=== PATIENT | male | born 1945 | race Caucasian/White ===

== ENCOUNTER → 2021-06-17 | Outpatient (CLI) | payer OTHER ==
[2021-01-31 11:18] VITALS: BP 144/69
[~2021-06-17] MED LIST: APRE30TA2 PO; BUDE10.22 IH; CHOL20009 PO; DILT420T7 PO; FLUO15CR2 TP; LISI5TAB15 PO; LOSA-73 PO; MELO7.5T29 PO; PRAV20TA2 PO; RIVA20TA2 PO; TAMS0.4C97 PO; VENTOLIN HFA18 GM INH
== END ==
LOC: LAB 12:11
PROVIDERS: ATTEND Orthopaedic Surgery Sports Medicine
DX: Z01.812 Encounter for preprocedural laboratory examination (principal); Z20.822 Contact with and (suspected) exposure to COVID-19; G56.01 Carpal tunnel syndrome, right upper limb
CPT/HCPCS: U0003; U0005

== ENCOUNTER 2021-06-22 08:00 | Day surgery (SDC) | payer OTHER ==
[~2021-06-22] VITALS: Ht 182.9 cm; Wt 102.0 kg
[~2021-06-22 08:00] MED LIST changes: +HYDROmorphone 2 MG/ML INJ. IVP PRN; +IV RINGERS,LACTATED 1000ML 1,000 ML IV SCH; +MORPHINE SULFATE 2 MG/ML INJ. IVP PRN; +PROCHLORPERAZINE 10 MG/2 ML VIAL. IVP PRN; +fentaNYL PF VIAL 100 MCG/2 ML VIAL IVP PRN
[2021-06-22] MEDS ORDERED: BUPIVACAINE MPF 0.5% 30 ML VIAL. ONE (08:46)
[2021-06-22] MEDS ORDERED: LIDOCAINE 1% Multi-Dose 20 ML VIAL. ONE (08:46)
[2021-06-22] MEDS ORDERED: LIDOCAINE 2% PF 5 ML VIAL. ONE (08:55)
[2021-06-22] MEDS ORDERED: DEXAMETHASONE SOD PHOS 4 MG/ML VIAL ONE (08:55)
[2021-06-22] MEDS ORDERED: PROPOFOL 10 MG/ML (20ML) VIAL. IV ONE (08:55)
[2021-06-22] MEDS ORDERED: ONDANSETRON PF 4 MG/2 ML VIAL. ONE (08:55)
[2021-06-22] MEDS ORDERED: MIDAZOLAM HCL/PF 2 MG/2 ML VIAL. ONE (08:57)
[2021-06-22] MEDS ORDERED: fentaNYL PF VIAL 100 MCG/2 ML VIAL ONE (08:57)
--- NOTE | 2021-06-22 10:01 | DISCH ---
DISCHARGE INSTRUCTIONS Condition on Discharge Condition on Discharge: Stable Activity After Discharge Activity Instructions for Disc: Resume previous activity, Activity as tolerated Bathing Instructions: Shower-keep dressing dry Lifting Instructions after Dis: No heavy lifting, No pulling or pushing Exercise Instruction after Dis: Progress as tolerated Weight Bearing Status after Di: As tolerated Diet after Discharge Diet after Discharge: Cardiac, Regular Diet Texture: Regular Swallowing Supervision: None needed Wound Incision Care Wound/Incision Care: Ice to area for comfort, Keep wound/cast CDI, Keep wound e levated Other wound/incision instructi: change dressing in 2-3 days, keep incision covered Contacting the DRBasim after DC Call your doctor for: Concerns you may have Follow-Up Follow up with: Jennifer in 2 wks Treatment/Equipment after DC Adaptive Equipment Issued: None MONA ROBERTSON II, MD Jun 22, 2021 10:01
--- NOTE | 2021-06-22 10:05 | PDOC4 ---
Operative Note Operative Note Date of Procedure: 06/22/21 Surgeon: Toi Robertson Corn Popper: Eliseo Mcginnis Pre-operative Diagnosis: Right carpal tunnel syndrome Post-operative Diagnosis: same Procedure Performed: open right carpal tunnel release Anesthesia: Gen Blood Loss: 2 mL Tourniquet time: less than 20min Complications: none Reason for Procedure: Patient is a pleasant 76-year-old gentleman with electromyographic Thanh proven carpal tunnel syndrome on his right wrist. He had concordant clinical symptoms and after failure of conservative therapies, we discussed the risk benefits and alternatives to proceeding with open carpal tunnel release and he wished to proceed. Description of procedure: Patient was greeted in the preoperative area where the correct extremity was verified and marked. He was taken the operative suite and his antibiotics were started as he was brought back. Once in the operating room, he was transferred gently supine to the operating room table and had successful induction of a general anesthetic. Nonsterile tourniquet was applied to his right upper extremity. The right upper extremities and prepped and draped in the usual sterile fashion we conducted our standard preoperative timeout. I then made a longitudinal incision through a palmar crease starting at his distal wrist crease and proceeding into his palm, dissected subcutaneous tissue with tenotomy's, using bipolar cautery for hemostasis as I proceeded. I placed a self-retaining retractor and incised the palmar fascia in line with skin incision. Identified the transverse carpal ligament and releases sharply with a scalpel. I then placed a Ragnell retractor at the distal extent of the incision, spread above and below a small remaining portion of the transverse carpal ligament with tenotomy's and released this into the palm. I then repeated this maneuver in an ulnar directed fashion at the proximal portion of the incision. After this, I used the tip of the tenotomies to palpate along the course of the nerve and was confident I could accomplish a complete release. The wound was then thoroughly irrigated with sterile fluid, skin was closed with mattress suture, 3-0 nylon. Patient tolerated surgery well. No complications. Tourniquet had been let down and hemostasis was ensured. After this, a sterile bulky dressing was applied once the hand and arm were cleansed and dried. Patient was awake from anesthesia, tolerated surgery well. No complications. At the conclusion, he was transferred to recovery room cart and taken to PACU stable and extubated condition. Postoperative plan is to discharge him home, wound care was discussed with his family and given in written form, as were postop activity instructions. I will see him back in 2 weeks, sooner should a problem arise TOI ROBERTSON II, MD Jun 22, 2021 10:05
[2021-06-22 11:12] VITALS: BP 138/75
== END 2021-06-22 11:23 | disposition home or self-care (01) ==
LOC: SURG 08:00
PROVIDERS: ATTEND Orthopaedic Surgery Sports Medicine
DX: G56.01 Carpal tunnel syndrome, right upper limb (principal); I10 Essential (primary) hypertension; I48.91 Unspecified atrial fibrillation; E78.00 Pure hypercholesterolemia, unspecified; E66.9 Obesity, unspecified; M19.90 Unspecified osteoarthritis, unspecified site; G47.30 Sleep apnea, unspecified; F32.9 Major depressive disorder, single episode, unspecified; F17.210 Nicotine dependence, cigarettes, uncomplicated; Z79.899 Other long term (current) drug therapy; Z98.890 Other specified postprocedural states
CPT/HCPCS: 64721; A4209; A4930; A6223; A6402; A6449; J0690; J1100; J2250; J2405; J2704; J3010; J3490